=== PATIENT | male | born 1955 | race Caucasian/White ===

== ENCOUNTER → 2021-07-10 15:14 | Outpatient (CLI) | payer OTHER, SELFPAY ==
--- NOTE | 2021-07-10 15:20 | XR_ITS ---
PROCEDURE: XR KUB CLINICAL INDICATION: CONSTIPATION BY DELAYED COLONIC TRANSIT COMPARISON: No exams were available for comparison FINDINGS: This exam does not include the lateral aspect the abdomen nor does not include the entire pelvis or hepatic dome region. A repeat has been suggested but has not yet been performed. If this is exam is repeated then an addendum can be added at no additional charge. Bowel gas pattern is nonspecific. There are degenerative changes in the lumbar spine. No obvious renal calculi. Small calcific density is present in the right lower pelvic region and may be due to a phleboliths. Mild degenerative changes of the hips. IMPRESSION: No acute finding. Please see above for detail. The exam does not include the entire abdomen Dictated by: Cody Stein MD 07/17/2021 08:17 Cody Stein MD in [facility] 07/17/2021 08:17
== END ==
PROVIDERS: PCP Family Medicine; Visit Provider Family Medicine
DX: K59.01 Slow transit constipation (principal)
CPT/HCPCS: 74018

== ENCOUNTER → 2021-07-28 13:12 | Outpatient (CLI) | payer MEDICARE, SELFPAY ==
[2021-07-28 15:28] LABS: Blood Urea Nitrogen 15 mg/dl (9-20); Estimated Glomerular Filt Rate 75 ml/min (>60); GFR (African American) 90 ML/MIN (>60)
== END ==
PROVIDERS: Visit Provider Family Medicine
DX: R10.11 Right upper quadrant pain (principal)
CPT/HCPCS: 36415; 82565; 84520

== ENCOUNTER → 2021-07-31 09:38 | Outpatient (CLI) | payer MEDICARE, SELFPAY ==
--- NOTE | 2021-07-31 09:41 | CT_ITS ---
PROCEDURE: CT ABDOMEN PELVIS WO/W CON CLINICAL INDICATION: RUQ ABD PAIN COMPARISON: No exams were available for comparison TECHNIQUE: IV Contrast: 75ML Isovue 370 Oral Contrast 450ml Redicat Axial images obtained with sagittal and coronal reformats. All CT scans at the facility use one or more dose reduction, viz: automated exposure control, ma/kV adjustment per patient size (including targeted exams where dose is matched to indication, i.e. head), or iterative reconstruction technique. FINDINGS: Lung bases are clear. Right-sided coronary artery calcification noted. The liver, gallbladder, spleen, pancreas, and adrenal glands have an unremarkable appearance. No renal or ureteral calculi. There is a complex right renal cyst anteriorly measuring 4.5 x 3.8 cm. There is a internal septation within the cyst superiorly without significant and enhancement and no calcification. A small simple appearing right renal cyst noted posteriorly at 3 cm. There are small bilateral parapelvic cysts. No intestinal obstruction or free air. Unremarkable appendix. No pelvic mass or abnormal fluid collection. No obvious abdominal wall hernias. Mild degenerative changes of the lumbar spine and hips. Small sclerotic focus of the right ischium medially at 7 mm and 1 in the right super acetabular region at 6 mm possibly due to small bone islands IMPRESSION: 1. No acute abdominal or pelvic findings. 2. 4.5 x 3.8 cm complex right renal cyst Bosniak class 2. Consider six-month follow-up to confirm stability. 3. Other nonacute findings as described above. Dictated by: Cody Stein MD 08/01/2021 11:33 Cody Stein MD in [facility] 08/01/2021 11:33
== END ==
PROVIDERS: PCP Family Medicine; Visit Provider Family Medicine
DX: R10.11 Right upper quadrant pain (principal)
CPT/HCPCS: 74178; Q9967